=== PATIENT | male | born 1975 | race African-American/Black ===

== ENCOUNTER 2019-04-13 14:18 | Emergency (ER) | payer OTHER ==
[~2019-04-13] VITALS: Ht 172.7 cm; Wt 83.9 kg
[2019-04-13 14:31] VITALS: BP 134/67
[2019-04-13] MEDS ORDERED: METFORMIN HCL500 M1 ORAL (14:36)
--- NOTE | 2019-04-13 15:02 | NUR ---
ED Nurse Note: Pt. AAOx4. Ambulatory.pt. stated that for the past few months feeling dizziness and anxiety that comes and goes, requiring pt to take deep breaths to resolve. pt denies palpitations, cp and n/v.
[2019-04-13 15:51] LABS: BASOPHILS % (AUTO) 1.8 % (0.0-2.0); EOSINOPHILS % (AUTO) 4.2 % (0.0-3.0); HEMATOCRIT 42.8 % (42.0-52.0); HEMOGLOBIN 15.3 G/DL (14.2-18.0); LYMPHOCYTES % (AUTO) 37.2 % (20.0-45.0); MEAN CORPUSCULAR VOLUME 88 FL (80-99); MONOCYTES % (AUTO) 6.5 % (1.0-10.0); NEUTROPHILS % (AUTO) 50.3 % (45.0-75.0); PLATELET COUNT 237 K/UL (150-450); RED BLOOD COUNT 4.84 M/UL (4.70-6.10); RED CELL DISTRIBUTION WIDTH 10.6 % (11.6-14.8); WHITE BLOOD COUNT 5.8 K/UL (4.8-10.8)
[2019-04-13 15:53] LABS: APPEARANCE,URINE CLEAR; BILIRUBIN, URINE NEGATIVE (NEGATIVE); COLOR,URINE PALE YELLOW; GLUCOSE, URINE (UA) 4+ (NEGATIVE); KETONES,URINE 2+ (NEGATIVE); LEUKOCYTE ESTERASE ,URINE 1+ (NEGATIVE); NITRITE,URINE NEGATIVE (NEGATIVE); PH,URINE 5 (4.5-8.0); PROTEIN,URINE 1+ (NEGATIVE); UROBILINOGEN,URINE 1 MG/DL (0.0-1.0)
--- NOTE | 2019-04-13 15:55 | Diagnostic Imaging Report ---
Indication: Chest pain Technique: One view of the chest Comparison: none Findings: Lungs and pleural spaces are clear. Heart size is normal. Impression: No acute process
[2019-04-13 16:03] LABS: ANION GAP 9 mmol/L (5-15); BLOOD UREA NITROGEN 11 mg/dL (7-18); CALCIUM 9.4 MG/DL (8.5-10.1); CARBON DIOXIDE 27 MMOL/L (21-32); CHLORIDE 102 MMOL/L (98-107); CREATININE 1.1 MG/DL (0.55-1.30); SODIUM 138 MMOL/L (136-145)
[2019-04-13 16:07] LABS: ALANINE AMINOTRANSFERASE 67 U/L (12-78); ALBUMIN/GLOBULIN RATIO 1.1 (1.0-2.7); ALKALINE PHOSPHATASE 68 U/L (46-116); ASPARTATE AMINO TRANSFERASE 20 U/L (15-37); BILIRUBIN,TOTAL 0.4 MG/DL (0.2-1.0); CREATINE KINASE 310 U/L (26-308)
--- NOTE | 2019-04-13 17:00 | Emergency Room Report ---
History of Present Illness General Chief Complaint: Dizziness Source: Patient Present Illness HPI 44-year-old male with history of diabetes currently controlled with metformin here complaining of several months of sudden onset of feeling anxious and palpitations. Patient reports that it varies in time of occurrence that has happened when at rest as well as with exertion however denies chest pain pain radiation. Patient reports that he is compliant with taking his metformin and has recently seen his primary care physician however has not mentioned his anxiety. Denies suicidal and homicidal ideation. Denies difficulty sleeping or change of appetite. Denies abdominal pain, nausea vomiting, urinary frequency. Denies dizziness, headache, blurry vision. He further reports that for the past few years he has been drinking 1 glass of wine every night. Also has history of several years of tobacco smoke. Denies drug use admits to use of marijuana occasionally. Has not taken medication for symptom relief. Denies past diagnosis of generalized anxiety disorder or taking any anxiety medication. Allergies: Coded Allergies: No Known Allergies (Unverified , 12/15/15) Patient History Past Medical History: see triage record Past Surgical History: none Pertinent Family History: none Social History: Reports: smoking - Daily tobacco smoker, alcohol use - 1 glass of wine every night Immunizations: UTD Reviewed Nursing Documentation: PMH: Agreed; PSxH: Agreed Nursing Documentation-PMH Past Medical History: No History, Except For Hx Diabetes: Yes Review of Systems All Other Systems: negative except mentioned in HPI Physical Exam Vital Signs Date Time Temp Pulse Resp B/P (MAP) Pulse Ox O2 Delivery O2 Flow Rate FiO2 04/13/19 14:31 97.5 97 20 134/67 (89) 94 Room Air Sp02 EP Interpretation: reviewed, normal General Appearance: no apparent distress, alert, GCS 15, non-toxic Head: normocephalic, atraumatic Eyes: bilateral eye normal inspection, bilateral eye PERRL ENT: hearing grossly normal, normal pharynx, no angioedema, normal voice Neck: full range of motion, supple/symm/no masses Respiratory: chest non-tender, lungs clear, normal breath sounds, speaking full sentences Cardiovascular #1: regular rate, rhythm, no edema, no murmur Gastrointestinal: normal bowel sounds, non tender, soft, non-distended, no guarding, no rebound Musculoskeletal: normal inspection, back normal, digits/nails normal Neurologic: alert, oriented x3, responsive, motor strength/tone normal, sensory intact, speech normal Psychiatric: judgement/insight normal, memory normal, mood/affect normal, no suicidal/homicidal ideation Skin: no rash Lymphatic: normal inspection, no adenopathy Medical Decision Making PA Attestation All diagnoses and treatment plans were reviewed and discussed with my supervising physician Dr. Diamond Diagnostic Impression: Primary Impression: Palpitations Additional Impression: Alcohol withdrawal ER Course 44-year-old male with history of diabetes currently controlled with metformin here complaining of several months of sudden onset of feeling anxious and palpitations. Patient reports that it varies in time of occurrence that has happened when at rest as well as with exertion however denies chest pain pain radiation. Patient reports that he is compliant with taking his metformin and has recently seen his primary care physician however has not mentioned his anxiety. Denies suicidal and homicidal ideation. Denies difficulty sleeping or change of appetite. Denies abdominal pain, nausea vomiting, urinary frequency. Denies dizziness, headache, blurry vision. He further reports that for the past few years he has been drinking 1 glass of wine every night. Also has history of several years of tobacco smoke. Denies drug use admits to use of marijuana occasionally. Has not taken medication for symptom relief. Denies past diagnosis of generalized anxiety disorder or taking any anxiety medication. Ddx considered but are not limited to: generalized anxiety disorder, panic attack, depression with psychotic feature, bipolar disorder, drug overdose , alcohol abuse Vital signs: are WNL, pt. is afebrile H&PE are most consistent with: Anxiety secondary to alcohol withdrawal ORDERS: CBC, CMP, UA, tox screen, EtOH levels, ED INTERVENTIONS: NS bolus due to elevated CK DISCHARGE: At this time pt. is stable for d/c to home. Will provide printed patient care instructions, and any necessary prescriptions. Care plan and follow up instructions have been discussed with the patient prior to discharge. Take medication as directed follow-up with primary care provider decrease her alcohol intake as her anxiety is secondary to going through alcohol withdrawal if heart rate lower is then 60 did not take propranolol EKG Diagnostic Results Rate: normal Rhythm: NSR ST Segments: no acute changes Last Vital Signs Date Time Temp Pulse Resp B/P (MAP) Pulse Ox O2 Delivery O2 Flow Rate FiO2 04/13/19 14:31 97.5 97 20 134/67 94 Room Air Disposition: HOME, SELF-CARE Condition: Stable Referrals: NON PHYSICIAN (PCP) Patient Instructions: Alcohol Withdrawal, [id number], Palpitations, Easy-to- Read Additional Instructions: marcia medication as directed follow-up with primary care provider decrease her alcohol intake as her anxiety is secondary to going through alcohol withdrawal if heart rate lower is then 60 did not take propranolol. Return to the emergency room if worsening symptoms. Francis Allen Apr 13, 2019 17:00
[2019-04-13] MEDS ORDERED: PROPRANOLOL HCL10 MG ORAL (17:01)
[2019-04-13 17:16] VITALS: BP 134/78
--- NOTE | 2019-04-13 17:16 | NUR ---
ER Nurse Note: Pt seen, treated, medically cleared for discharge by ERMD. Discharge instuctions and prescriptions given with repeat verbalization by pt. Emphasized to follow up with primay care provider; take whole course of medication. Explained each medication. All orders completed per ERMD orders. Pt a&ox4, VSS, no signs of distress. ID band removed. IV removed; site clean and bandaged. All questions answered per pt's questions. Pt left with all belongings, left with own transportation.
== END 2019-04-13 17:16 | disposition home or self-care (01) ==
LOC: EMR 15:03
DX: R00.2 Palpitations (principal); F10.239 Alcohol dependence with withdrawal, unspecified; E11.9 Type 2 diabetes mellitus without complications; F17.200 Nicotine dependence, unspecified, uncomplicated
CPT/HCPCS: 36415; 71045; 80053; 80307; 80329; 81001; 82550; 83690; 85025; 93005; 96360; 99284